=== PATIENT | male | born 1980 | race Hispanic/Latino ===

== ENCOUNTER 2017-12-29 04:55 | Emergency (ER) | payer MEDICAID ==
--- NOTE | 2017-12-29 06:05 | C.PDOC ---
History Of Present Illness 37 year old male with PMHx of anxiety, adult ADHD presents to the ED for evaluation. Patient reports he saw his psychiatrist already this month. However for the past 4-5 days, whenever patient is arguing he feels anxious and his legs feel weak patient has to sit down. Patient decided to come in for en evaluation however at this time patient is asymptomatic. Patient denies SI/HI, hallucinations, CP, SOB, weakness, numbness. Chief Complaint (Nursing): Anxiety History Per: Patient History/Exam Limitations: no limitations Onset/Duration Of Symptoms: Days (4-5) Current Symptoms Are (Timing): Gone Suicide/Self Injury Attempted (Context): None Modifying Factor(s): None Associated Symptoms: Anxiety, Agitation. denies: Depression, Suicidal Thoughts , Suicidal Plan Recent travel outside of the [place]: No Additional History Per: Patient, EMS Past Medical History Reviewed: Historical Data, Nursing Documentation, Vital Signs Vital Signs: Last Vital Signs Temp 97.7 F 12/29/17 05:24 Pulse 91 H 12/29/17 05:24 Resp 20 12/29/17 05:24 BP 137/91 H 12/29/17 05:24 Pulse Ox 96 12/29/17 06:41 - Medical History PMH: Anxiety, Hypercholesterolemia Other PMH: ADHD Surgical History: No Surg Hx Family History: States: Unknown Family Hx - Social History Hx Alcohol Use: Yes Hx Substance Use: No - Immunization History Hx Tetanus Toxoid Vaccination: Yes Hx Influenza Vaccination: Yes Hx Pneumococcal Vaccination: Yes Review Of Systems Constitutional: Negative for: Fever, Chills Cardiovascular: Negative for: Chest Pain, Palpitations Respiratory: Negative for: Cough, Shortness of Breath Gastrointestinal: Negative for: Nausea, Vomiting Psych: Positive for: Anxiety. Negative for: Depression, Suicidal ideation Physical Exam - Physical Exam Appears: Non-toxic, No Acute Distress Skin: Normal Color, Warm, Dry Head: Atraumatic, Normacephalic Eye(s): bilateral: Normal Inspection Oral Mucosa: Moist Neck: Normal ROM, Supple Chest: Symmetrical Cardiovascular: Rhythm Regular Respiratory: Normal Breath Sounds, No Rales, No Rhonchi, No Wheezing Gastrointestinal/Abdominal: Soft, No Tenderness, No Guarding, No Rebound Extremity: Normal ROM, No Tenderness, No Swelling Neurological/Psych: Oriented x3, Normal Speech Gait: Steady ED Course And Treatment O2 Sat by Pulse Oximetry: 96 (ON RA) Pulse Ox Interpretation: Normal Progress Note: Patient is asymptomatic while in the ED. Informed crisis about the patient. 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 Patient is stable for D/C home , and advised to continue seeing his psychiatrist. Disposition - Disposition Disposition: HOME/ ROUTINE Disposition Time: 06:44 Condition: STABLE Additional Instructions: Follow up with your PMD and Psychiatrist within 1-2 days. Return to ED if feel worse. Instructions: Anxiety, Adult (DC) Forms: [employer] ([place]) - Clinical Impression Clinical Impression: Anxiety - PA / SOFTWARE SUPPORT TECHNICIAN / Resident Statement MD/DO has reviewed & agrees with the documentation as recorded. - Scribe Statement The provider has reviewed the documentation as recorded by the Scribe Kana Corrales All medical record entries made by the Scribe were at my direction and personally dictated by me. I have reviewed the chart and agree that the record accurately reflects my personal performance of the history, physical exam, medical decision making, and the department course for this patient. I have also personally directed, reviewed, and agree with the discharge instructions and disposition.
[2017-12-29 06:51] VITALS: BP 125/83; PULSE 86; RESP 16; TEMP 98
[2017-12-29 19:29] VITALS: O2SAT 96
== END 2017-12-29 07:03 | disposition home or self-care (01) ==
LOC: C.ER 04:55
DX: F41.9 Anxiety disorder, unspecified (principal)

== ENCOUNTER 2018-08-30 23:14 | Emergency (ER) | payer MEDICAID ==
[2018-08-30 23:23] VITALS: BMI 31.3
[2018-08-30 23:28] VITALS: BP 152/112; PULSE 92; TEMP 97.5; O2SAT 100
--- NOTE | 2018-08-30 23:42 | C.PDOC ---
History Of Present Illness 38 year old male with PMHX of anxiety disorder is brought to the ED by EMS for evaluation of anxiety. 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 Patient denies SI/HI, hallucinations, CP, SOB, injury, fall, trauma. Time Seen by Provider: 08/30/18 23:40 Chief Complaint (Nursing): Anxiety History Per: Patient, EMS History/Exam Limitations: no limitations Onset/Duration Of Symptoms: Hrs Current Symptoms Are (Timing): Still Present Suicide/Self Injury Attempted (Context): None Associated Symptoms: Anxiety. denies: Depression, Suicidal Thoughts, Suicidal Plan Recent travel outside of the [place]: No Additional History Per: Patient, EMS Past Medical History Reviewed: Historical Data, Nursing Documentation, Vital Signs Vital Signs: Last Vital Signs Temp 97.5 F L 08/30/18 23:24 Pulse 92 H 08/30/18 23:24 Resp 19 08/30/18 23:24 BP 152/112 H 08/30/18 23:24 Pulse Ox 100 08/30/18 23:24 - Medical History PMH: Anxiety, Hypercholesterolemia Surgical History: Appendectomy Family History: States: Unknown Family Hx - Social History Hx Alcohol Use: Yes Hx Substance Use: No - Immunization History Hx Tetanus Toxoid Vaccination: Yes Hx Influenza Vaccination: Yes Hx Pneumococcal Vaccination: Yes Review Of Systems Constitutional: Negative for: Fever, Chills Cardiovascular: Negative for: Chest Pain, Palpitations Respiratory: Negative for: Shortness of Breath Gastrointestinal: Negative for: Nausea, Vomiting, Abdominal Pain Skin: Negative for: Rash Psych: Positive for: Anxiety. Negative for: Depression, Suicidal ideation Physical Exam - Physical Exam Appears: Non-toxic, Other (anxious male ) Skin: Normal Color, Warm, Dry Head: Atraumatic, Normacephalic Eye(s): bilateral: Normal Inspection Neck: Normal ROM, Supple Chest: Symmetrical Cardiovascular: Rhythm Regular Respiratory: Normal Breath Sounds, No Rales, No Rhonchi, No Wheezing Gastrointestinal/Abdominal: Soft, No Tenderness Extremity: Normal ROM Neurological/Psych: Oriented x3, Normal Speech, Normal Cognition Gait: Steady ED Course And Treatment O2 Sat by Pulse Oximetry: 100 (ON RA) Pulse Ox Interpretation: Normal Medical Decision Making Medical Decision Making: baseline anxiety took Xanax 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 Disposition Doctor Will See Patient In The: Office Counseled Patient/Family Regarding: Studies Performed, Diagnosis - Disposition Referrals: [facility] [Outside] [facility] [Outside] [facility] [Outside] [facility] [Outside] Kodak Ocampo MD [Medical Doctor] - Disposition: HOME/ ROUTINE Disposition Time: 23:42 Condition: GOOD Additional Instructions: Continue Xanax as needed as prescribed by your PMD outpatient follow-up for anxiety issues as needed. Instructions: Anxiety, Adult (DC) Forms: [employer] (Nepalese) - Clinical Impression Clinical Impression: Anxiety - Scribe Statement The provider has reviewed the documentation as recorded by the Scribe Kana Corrales All medical record entries made by the Scribe were at my direction and personally dictated by me. I have reviewed the chart and agree that the record accurately reflects my personal performance of the history, physical exam, medical decision making, and the department course for this patient. I have also personally directed, reviewed, and agree with the discharge instructions and disposition.
[2018-08-30 23:58] VITALS: RESP 16
== END 2018-08-30 23:57 | disposition home or self-care (01) ==
LOC: C.ER 23:14
DX: F41.9 Anxiety disorder, unspecified (principal)